=== PATIENT | male | born 1980 | race American Indian/Alaskan Native ===

== ENCOUNTER 2021-01-29 07:10 | Emergency (ER) | payer BC ==
[2021-01-29 07:41] VITALS: BP 116/84
--- NOTE | 2021-01-29 09:10 | Emergency Department Report ---
ED General Adult HPI - General Chief complaint: Back Pain/Injury Stated complaint: LOWER BACK PAIN INJURY Time Seen by Provider: 01/29/21 08:10 Source: patient Mode of arrival: Ambulatory Limitations: No Limitations - History of Present Illness Initial comments: 40-year-old -[place] male patient presents with complaints of right mid back pain x3 days. Patient states his pain began after he fell backwards onto the armrest of a couch. He states the pain occurs only with movement in certain positions and rates it as a 7/10 in severity. He reports lidocaine patches and ibuprofen helps somewhat. Pain worsens with deep inhalation also per patient. He denies any difficulty with ambulation, loss of bladder/bowel control, numbness/tingling/weakness in his limbs, chest pain, cough, or shortness of breath -: Sudden - Related Data Previous Rx's Medication Instructions Recorded Last Taken Type Naproxen 500 mg PO BID PRN #20 tablet 01/29/21 Unknown Rx methocarbamoL [Methocarbamol] 750 mg PO TID PRN #20 tablet 01/29/21 Unknown Rx Allergies Allergy/AdvReac Type Severity Reaction Status Date / Time No Known Allergies Allergy Unverified 01/29/21 07:37 ED Review of Systems ROS: Stated complaint: LOWER BACK PAIN INJURY Other details as noted in HPI Constitutional: denies: chills, diaphoresis, fever, malaise, weakness Respiratory: denies: cough, shortness of breath Cardiovascular: denies: chest pain Gastrointestinal: denies: abdominal pain, nausea, vomiting, diarrhea, constipation Musculoskeletal: back pain Neurological: denies: numbness, paresthesias, abnormal gait ED Past Medical Hx - Past Medical History Previous Medical History?: No - Surgical History Hx Appendectomy: Yes - Social History Smoking Status: Current Every Day Smoker Substance Use Type: Alcohol - Medications Home Medications: Home Medications Medication Instructions Recorded Confirmed Last Taken Type Naproxen 500 mg PO BID PRN #20 tablet 01/29/21 Unknown Rx methocarbamoL [Methocarbamol] 750 mg PO TID PRN #20 tablet 01/29/21 Unknown Rx ED Physical Exam - General Limitations: No Limitations General appearance: alert, in no apparent distress - Head Head exam: Present: atraumatic - Eye Eye exam: Present: normal appearance. Absent: scleral icterus - Neck Neck exam: Present: normal inspection - Respiratory Respiratory exam: Present: normal lung sounds bilaterally, other (Tenderness to palpation noted to right lower posterior ribs without bruising or obvious deformity noted). Absent: respiratory distress - Cardiovascular Cardiovascular Exam: Present: regular rate, normal rhythm. Absent: systolic murmur, diastolic murmur, rubs, gallop - GI/Abdominal GI/Abdominal exam: Present: soft, normal bowel sounds. Absent: distended, tenderness, guarding, rebound, rigid - Back Exam Back exam: Present: full ROM. Absent: vertebral tenderness (No obvious deformities or step-offs) - Neurological Exam Neurological exam: Present: alert, oriented X3, normal gait. Absent: motor sensory deficit - Psychiatric Psychiatric exam: Present: normal affect, normal mood - Skin Skin exam: Present: warm, dry, intact, normal color. Absent: rash ED Course Vital Signs 01/29/21 07:40 Temperature 98.1 F Pulse Rate 57 L Respiratory 18 Rate Blood Pressure 116/84 O2 Sat by Pulse 99 Oximetry ED Medical Decision Making - Radiology Data Radiology results: report reviewed PA chest with right ribs INDICATION: Lower rib pain FINDINGS: Heart size appears normal. Lungs are clear heart size appears normal. No displaced rib fracture is seen. IMPRESSION: No displaced rib fracture. - Medical Decision Making 40-year-old -[place] male patient presents with complaints of right mid back pain x3 days. Patient states his pain began after he fell backwards onto the armrest of a couch. He states the pain occurs only with movement in certain positions and rates it as a 7/10 in severity. He reports lidocaine patches and ibuprofen helps somewhat. Pain worsens with deep inhalation also per patient. He denies any difficulty with ambulation, loss of bladder/bowel control, numbness/tingling/weakness in his limbs, chest pain, cough, or shortness of breath On exam, there is tenderness to palpation of the right lower posterior ribs without obvious deformities or bruising. X-ray is negative for any acute bony abnormality of the rib. He has normal range of motion of the thoracic/lumbar spine. He denies any red flag symptoms. We will treat for rib contusion with NSAIDs and icing. Recommend follow-up with primary care doctor in 3 days. Discussed signs and symptoms that should prompt immediate return to the emergency department in detail with patient who verbalizes understanding. Critical care attestation.: If time is entered above; I have spent that time in minutes in the direct care of this critically ill patient, excluding procedure time. ED Disposition Clinical Impression: Rib contusion Disposition: TO HOME OR SELFCARE Is pt being admited?: No Condition: Stable Instructions: Rib Contusion Prescriptions: methocarbamoL [Methocarbamol] 750 mg PO TID PRN #20 tablet PRN Reason: muscle spasm/tightness Naproxen 500 mg PO BID PRN #20 tablet PRN Reason: pain Referrals: PRIMARY CARE, [Primary Care Provider] - 3-5 Days [facility] [Provider Group] - 3-5 Days Forms: Work/School Release Form(ED)
--- NOTE | 2021-01-29 09:29 | XRay Report ---
PA chest with right ribs INDICATION: Lower rib pain FINDINGS: Heart size appears normal. Lungs are clear heart size appears normal. No displaced rib frac ture is seen. IMPRESSION: No displaced rib fracture. Signer Name: Riley Brown MD Signed: 01/29/2021 9:25 AM Workstation Name: [id number]
== END 2021-01-29 09:59 | disposition home or self-care (01) ==
LOC: ED 07:10
DX: S20.221A Contusion of right back wall of thorax, initial encounter (principal); F17.200 Nicotine dependence, unspecified, uncomplicated; Z98.890 Other specified postprocedural states; W19.XXXA Unspecified fall, initial encounter; Y93.89 Activity, other specified; Y92.89 Other specified places as the place of occurrence of the external cause; Y99.8 Other external cause status
CPT/HCPCS: 99283